=== PATIENT | male | born 1965 | race African-American/Black ===

== ENCOUNTER 2016-06-22 10:08 | Inpatient (IN) ==
--- NOTE | 2016-06-19 22:36 | Discharge Summary ---
<LauriebradySaima L - Last Filed: 06/22/16 13:15> Date of Encounter: 06/22/16 - Discharge Diagnosis (1) Arthritis of hip Priority: Primary Status: Acute (2) Arthritis of left hip Status: Acute (3) Obesity (BMI 35.0-39.9 without comorbidity) Status: Chronic - Discharge Medications Home Medications: Aspirin Enteric Coated [Aspirin EC] 325 mg PO DAILY #21 tablet. 06/22/16 [Rx] Lisinopril/Hydrochlorothiazide [Zestoretic 20-12.5 mg Tablet] 1 each PO DAILY [History] Metoprolol [Lopressor] 25 mg PO DAILY 06/22/16 [History] OxyCODONE Immed Rel [Roxicodone 5 MG] 5 - 10 mg PO Q6HR PRN #40 tablet 06/22/16 [Rx] Allergies/Adverse Reactions: Allergies No Known Allergies Allergy (Verified 06/22/16 12:41) Primary care physician: PCP NO - Patient Status Disposition: Home, Self-Care Condition: Good - Discharge Instructions Follow Up With: NO,PCP [Primary Care Provider] - - Hospital Course Hospital course: Mr. Kee is a 51 year old male - Time Spent with Patient Total time spent providing and/or coordinating discharge services: <Gio Gutierrez - Last Filed: 06/24/16 06:29> Date of Encounter: 06/24/16 Time of Encounter: 06:29 - Discharge Diagnosis (1) Arthritis of left hip Priority: Primary Status: Acute (2) Obesity (BMI 35.0-39.9 without comorbidity) Priority: Secondary Status: Chronic (3) Hypertension Priority: Secondary Status: Chronic Qualifiers: Hypertension type: unspecified secondary hypertension Qualified Code(s): I15.9 - Secondary hypertension, unspecified; I15 - Secondary hypertension Primary care physician: PCP NO - Patient Status Functional capacity at discharge: uses cane/walker Overall status at discharge: patient is progressing back to baseline - Hospital Course Hospital course: Mr. Kee is a 51 year old male The patient had an uneventful postoperative course. They received antibiotics and physical therapy and were discharged in stable condition. There will follow -up in the office in 2 weeks. Aspirin DVT prophylaxis - Time Spent with Patient Total time spent providing and/or coordinating discharge services:
--- NOTE | 2016-06-22 11:50 | History & Physical Report ---
Date of Encounter: 06/22/16 Time of Encounter: 11:49 24 Hour HP Update - Instructions Instructions: If the History and Physical is less than 30 days old and was completed prior to A.M. admission and or procedure and has NOT been updated on calendar day of procedure please complete this update prior to performing procedure. - Update Patient reports changes in Medical Condition: No Changes in assessment/condition: No Changes in Medication: No Preop tests/diagnostics Reviewed: Yes Surgery Remains Indicated: Yes Consent for Planned Operative Procedure(s) Verified: Yes - Pre-Operative Checklist Preoperative Checklist Indicated: No Prophylactic Antibiotic Ordered: Yes Is VTE Prophylaxis Indicated?: Yes
--- NOTE | 2016-06-22 11:55 | Anesthesia Evaluation PreOp ---
Date of Encounter: 06/22/16 Time of Encounter: 11:53 - Past History Planned Operation: L DAVEY Cardiac History: HTN Pulmonary History: Snore PROFESSIONAL SERVICES SPECIALIST History: Denies Any Significant HX Other Medical History: Denies Any Significant HX Anesthesia History: No Prior Anesthetic Complications, Past Anesthesia Alcohol Use: occasionally Drug use: none Medications and Allergies Allergies No Known Allergies Allergy (Unverified 06/02/16 14:33) - Meds/Allergy Pre-op Review Medications Reviewed: Yes Allergies Reviewed: Yes Beta Blockers on Current Med List: Yes If Beta Blockers taken, Date/Time (Last Dose taken): metoprolol at 0700 Anesthesia Results - Labs Laboratory Tests 06/02/16 06/02/16 06/02/16 14:45 14:45 14:45 Hgb 14.7 Hct 44.8 Plt Count 243 PT 15.1 H INR 1.4 APTT 33.1 Sodium 140 Potassium 3.9 Creatinine 0.93 - Imaging EKG: report reviewed (sr) Anesthesia Exam O2 Sat Height 1.8 m Height 1.8 m Weight 127.006 kg Weight 127.006 kg O2 Sat by Pulse Oximetry 94 Vital Signs Temp Pulse Resp BP Pulse Ox 98.5 F 68 18 159/99 94 L 06/22/16 11:27 06/22/16 11:27 06/22/16 11:27 06/22/16 11:27 06/22/16 11:27 Height: 1.8 Weight: 127 NPO (# of Hours): >8 - HEENT Pupil (Motor): Pupils equal, EOMI Mallampati: II Teeth: Normal Oral Opening: Greater than 3 - PROFESSIONAL SERVICES SPECIALIST LOC: Oriented PROFESSIONAL SERVICES SPECIALIST Motor: Normal RUE, Normal LUE, Normal RLE, Normal LLE, Normal Face PROFESSIONAL SERVICES SPECIALIST Sensory: Normal: RUE, LUE, RLE, LLE, Face - Cardiac Rhythm: Regular Murmur: None - Pulmonary Breath Sounds: bilateral Clear Respiratory Effort: Symmetrical Anesthesia Assess/Plan ASA Score: 2 Modified Marquita Scale for Level of Consciousness: Cooperative, oriented, and tranquil Anesthetic Plan: General, Regional Monitoring Plan: Standard Monitors Recovery Plan: PACU
[2016-06-22] MEDS ORDERED: Ringers Solution, Lactated 1,000 ML IVC SCH ×3 (12:00→17:17)
[2016-06-22] MEDS ORDERED: CeFAZolin Pre 3,000 MG/100 ML 3,000 MG/100 ML BAG IVPB ONE (12:50)
[2016-06-22] MEDS ORDERED: *HR* FentaNYL (PF) 100 MCG/2 ML VIAL ONE (13:08)
[2016-06-22] MEDS ORDERED: *HR* Succinylcholine 200 MG/10 ML VIAL IVP ONE (13:08)
[2016-06-22] MEDS ORDERED: Dexamethasone 4 MG/ML VIAL ONE (13:08)
[2016-06-22] MEDS ORDERED: Ondansetron 4 MG/2 ML VIAL ONE ×2 (13:08→18:21)
[2016-06-22] MEDS ORDERED: Lidocaine -MPF 4% 5 ML AMPUL ONE (13:08)
[2016-06-22] MEDS ORDERED: Lidocaine -MPF 2% 2 ML VIAL ONE (13:08)
[2016-06-22] MEDS ORDERED: *HR* Propofol 200 MG/20 ML VIAL IVP ONE (13:09)
[2016-06-22] MEDS ORDERED: *HR* Midazolam HCl 2 MG/2 ML VIAL ONE (13:09)
[2016-06-22] MEDS ORDERED: *HR* Promethazine 25 MG/ML VIAL IVP PRN (13:14)
[2016-06-22] MEDS ORDERED: *HR* HYDROmorphone 2 MG/ML SYRINGE ONE (13:59)
--- NOTE | 2016-06-22 14:35 | Orthopedic Operative Note ---
Date of procedure: 06/22/16 Pre-op diagnosis: Left hip Osteoarthritis Post-op diagnosis: same (Morbid obesity) Procedure: Procedure: Left Total Hip Replacment Estimated blood loss: 500 cc Hardware: Biomet DM Cup: 58 G7 fin cup Femoral size 14 echo full profile lateralized stem Head: +0 head with Kelly Procedural Notes: Grade 43 changes femoral head acetabular socket Operative procedure: The patient was brought to the operating room and placed on the operating room table. After general anesthesia was administered the patient was placed in the lateral decubitus position with the operative leg up. All pressure points were padded appropriately and the head was stabilized in the neutral position. The operative extremity was prepped and draped in the sterile surgical fashion patient received IV antibiotic prior to skin incision. A standard posterior approach is made to the operative hip, the incision was made through the skin and subcutaneous tissue hemostasis was obtained with Bovie cautery. Using careful sharp dissection the fascia was identified and incised exposing the external rotators. The external rotators were released off the greater trochanter and tagged with #2 FiberWire suture. The capsule was T'd open and the hip was brought into internal rotation. Patient noted to have grade 4 arthritic changes femoral head. The femoral neck cut was made at the appropriate level. An anterior capsulotomy was performed for the anterior retractor. Soft tissues removed from the acetabulum. Patient noted to have grade 4 arthritic changes acetabulum. Acetabulum was first reamed medially, and then reamed in 15 degrees of anteversion and 45 degrees off the horizontal. It was reamed up to the appropriate size 58 The appropriate-sized 58 acetabular cup was impacted in place in 15 degrees of anteversion and 45 degrees off the horizontal. This had good fit and fixation. The hip was brought back in to internal rotation and prepared with the telephone coin box collector followed by the canal finder followed by broaching process in 20 degrees anteversion. It was broached up to the appropriate size or team The femoral implant was impacted in place in 20 degrees of anteversion. Trial reduction found the hip to be stable with +0 head and Kelly. The trials were removed and the real implants were impacted in place. The hip was reduced, patient had apparent equal leg lengths. The hip had excellent stability with forward flexion to 90 degrees adduction of 30 degrees and internal rotation of 60 degrees. The hip had no shuck. The hips after 2 minutes with a Betadine saline solution. It was irrigated out with 2 L of pulse irrigation. The external rotators were reattached to drill holes in the greater trochanter. Fascia was closed with a running #2 PDS suture. The deep tissue was irrigated and closed deep with #1 PDS suture superficially with 0 PDS suture and skin was closed with Dermabond and skin nivia. The patient was placed in a sterile dressing and abduction pillow. The patient was extubated and transferred to the recovery room in stable condition. Anesthesia: GETA Surgeon: Gio Gutierrez Condition: stable Disposition: PACU
[2016-06-22] MEDS: *HR* HYDROmorphone (PF) 1 MG/ML SYRINGE IVP PRN ×5 (15:15→16:41)
[2016-06-22] MEDS ORDERED: Acetaminophen IV 1,000 MG/100 ML INFUS..BTL IVPB ONE (15:50)
[2016-06-22] MEDS ORDERED: Ketorolac 30 MG/ML VIAL IVP ONE (15:50)
[2016-06-22] MEDS ORDERED: Gabapentin 300 MG CAPSULE PO STA (15:51)
[2016-06-22] MEDS ORDERED: cloNIDine HCl 0.1 MG TABLET PO ONE (15:51)
[2016-06-22 15:55] LABS: Hematocrit 41.1 % (37.5-50.1); Hemoglobin 13.2 g/dL (12.9-16.9)
[2016-06-22] MEDS ORDERED: cloNIDine HCl 0.1 MG TABLET ONE (16:01)
[2016-06-22] MEDS ORDERED: *HR* HYDROmorphone (PF) 1 MG/ML SYRINGE ONE ×2 (16:07→18:22)
--- NOTE | 2016-06-22 17:01 | Anesthesia Evaluation Post Op ---
Date of Encounter: 06/22/16 Time of Encounter: 16:58 - Vital Signs Vital Signs: Vital Signs/O2 Sat/Glucose, Most Current Temp Pulse Resp BP Pulse Ox 06/22/16 16:45 97.7 F 62 16 136/109 97 06/22/16 16:35 97.7 F 68 16 128/93 97 06/22/16 16:25 69 16 147/101 95 06/22/16 16:15 72 16 139/105 93 L 06/22/16 16:05 97.7 F 67 16 145/96 97 06/22/16 15:55 68 16 155/104 94 L 06/22/16 15:45 75 16 149/108 97 06/22/16 15:35 97.7 F 76 16 157/102 98 06/22/16 15:25 78 16 150/100 98 06/22/16 15:15 73 16 123/95 99 06/22/16 15:05 97.3 F L 82 16 119/76 99 - Lungs Lungs: Clear Ascult./Percussion - Airway Airway: Non-obstructed - Cardiovascular Regular Rate - Mental Status Mental Status: Alert & Oriented, Answers Appropriately - Pain Pain Scale: 4 Pain Scale used: Numeric (1 - 10) - Nausea Vomiting Nausea Vomiting: Fails treatment with oral meds - Hydration Hydration: Ice chips, Has not voided - Discharge PostOp Status: Transfer Patient to floor Anes Supervising Prov Stmt: Pt seen/evaluated, VSS and pt has met criteria for discharge to floor. - MD Yoanna
[2016-06-22] MEDS ORDERED: Acetaminophen 325 MG TABLET PO PRN (17:17)
[2016-06-22] MEDS ORDERED: Temazepam 15 MG CAPSULE PO PRN (17:17)
[2016-06-22] MEDS ORDERED: Naloxone 0.4 MG/ML INJ IVP PRN (17:17)
[2016-06-22] MEDS ORDERED: Ondansetron 4 MG/2 ML VIAL IVP PRN (17:17)
[2016-06-22] MEDS ORDERED: MOM Conc 10 ML UD.LIQ PO PRN (17:17)
[2016-06-22] MEDS ORDERED: Sennosides 8.6 MG TABLET PO PRN (17:17)
[2016-06-22] MEDS ORDERED: *HR* OxyCODONE Immed Rel 5 MG TABLET PO PRN (17:17)
[2016-06-22] MEDS ORDERED: *HR* Enoxaparin 30 MG/0.3 ML SYRINGE SQ SCH (18:00)
[2016-06-22] MEDS: Ascorbic Acid 500 MG TABLET PO SCH (18:33)
[2016-06-22] MEDS: *HR* Enoxaparin 30 MG/0.3 ML SYRINGE SQ SCH (18:39)
[2016-06-22] MEDS: ceFAZolin 3,000 MG in D5% in Water 100 ML IVPB SCH (22:14)
[2016-06-23] MEDS: *HR* HYDROmorphone (PF) 1 MG/ML SYRINGE IVP PRN ×3 (00:21→22:52)
[2016-06-23] MEDS: *HR* OxyCODONE Immed Rel 5 MG TABLET PO PRN ×3 (05:22→18:46)
[2016-06-23] MEDS: ceFAZolin 3,000 MG in D5% in Water 100 ML IVPB SCH (05:22)
[2016-06-23] MEDS: *HR* Enoxaparin 30 MG/0.3 ML SYRINGE SQ SCH ×2 (05:25→18:46)
[2016-06-23 06:00] LABS: Hematocrit 34.8 % (37.5-50.1); Hemoglobin 11.6 g/dL (12.9-16.9)
[2016-06-23 06:50] LABS: BUN/Creatinine Ratio 17 (6-26); Blood Urea Nitrogen 19 mg/dL (8-26); Calcium 8.6 mg/dL (8.6-10.8); Carbon Dioxide 25 mEq/L (19-29); Chloride 101 mEq/L (98-109); Glucose 128 mg/dL (70-99); Osmolality,Calculated 286 (280-300); Potassium 4.3 mEq/L (3.5-4.5); Sodium 136 mEq/L (136-145); eGFR For African Americans > 60 (> 60); eGFR For Non-African Americans > 60 (> 60)
[2016-06-23] MEDS: Ascorbic Acid 500 MG TABLET PO SCH ×2 (07:54→18:46)
[2016-06-23] MEDS: Multivit/Ca/Min/Fe/FA 1 TAB TABLET PO SCH (07:54)
[2016-06-23] MEDS: Lisinopril-HCTZ 20-12.5mg TABLET PO SCH (07:54)
--- NOTE | 2016-06-23 08:07 | Orthopedics Progress Note ---
Date of Encounter: 06/23/16 Time of Encounter: 08:06 - Assessment and Plan (1) Arthritis of left hip Current Visit: Yes Status: Acute (2) Obesity (BMI 35.0-39.9 without comorbidity) Current Visit: Yes Status: Chronic (3) Hypertension Current Visit: Yes Status: Chronic Qualifiers: Hypertension type: unspecified secondary hypertension Qualified Code(s): I15.9 - Secondary hypertension, unspecified; I15 - Secondary hypertension Subjective Interval history: Patient was seen this morning doing well without complaints. Afebrile vital signs stable. Operative extremity: Neurovascularly intact Dressing clean dry and intact Calves nontender Assessment and plan: Continue with postoperative care Hematocrit 34 Objective Vital signs: Vital Signs Temp Pulse Resp BP Pulse Ox 06/23/16 07:19 98.2 F 102 18 138/82 94 L 06/23/16 06:40 93 L 06/23/16 00:44 98.1 F 93 17 121/68 93 L 06/22/16 18:53 97.8 F 75 18 131/77 96 06/22/16 17:30 97.7 F 74 18 174/80 96 06/22/16 16:45 97.7 F 62 16 136/109 97 06/22/16 16:35 97.7 F 68 16 128/93 97 06/22/16 16:25 69 16 147/101 95 06/22/16 16:15 72 16 139/105 93 L 06/22/16 16:05 97.7 F 67 16 145/96 97 06/22/16 15:55 68 16 155/104 94 L 06/22/16 15:45 75 16 149/108 97 06/22/16 15:35 97.7 F 76 16 157/102 98 06/22/16 15:25 78 16 150/100 98 06/22/16 15:15 73 16 123/95 99 06/22/16 15:05 97.3 F L 82 16 119/76 99 06/22/16 12:07 98.5 F 68 18 159/99 94 L 06/22/16 11:27 98.5 F 68 18 159/99 94 L Intake and Output 06/22/16 06/23/16 06/23/16 23:59 07:59 15:59 Intake Total 100 / 100 Output Total 1000 / 1000 Balance -900 / -900 Intake: IV Fluids 100 / 100 Ancef 3,000 MG In 100 / 100 Dextrose 5% 100 ML @ 200 mls/hr IVPB Q8H [facility] Rx#: [id number] Output: Urine 200 / 200 Emesis 800 / 800 - Labs CBC & BMP: 06/23/16 04:16 06/23/16 04:16 Labs: Abnormal lab results Hgb 11.6 g/dL (12.9-16.9) L D 06/23/16 04:16 Hct 34.8 % (37.5-50.1) L 06/23/16 04:16 Glucose 128 mg/dL (70-99) H 06/23/16 04:16 - VTE Documentation of Mechanical Device: Venous foot pump, device Consult Discharge Plan - Plan Referrals: NO,PCP [Primary Care Provider] -
[2016-06-24] MEDS: *HR* OxyCODONE Immed Rel 5 MG TABLET PO PRN ×2 (01:08→09:48)
[2016-06-24] MEDS: *HR* HYDROmorphone (PF) 1 MG/ML SYRINGE IVP PRN (04:35)
[2016-06-24 05:06] LABS: Hemoglobin 10.1 g/dL (12.9-16.9)
[2016-06-24 05:21] LABS: BUN/Creatinine Ratio 15 (6-26); Blood Urea Nitrogen 14 mg/dL (8-26); Calcium 8.6 mg/dL (8.6-10.8); Carbon Dioxide 26 mEq/L (19-29); Chloride 99 mEq/L (98-109); Glucose 112 mg/dL (70-99); Osmolality,Calculated 277 (280-300); Potassium 3.6 mEq/L (3.5-4.5); Sodium 133 mEq/L (136-145); eGFR For African Americans > 60 (> 60); eGFR For Non-African Americans > 60 (> 60)
[2016-06-24] MEDS: *HR* Enoxaparin 30 MG/0.3 ML SYRINGE SQ SCH (06:16)
[2016-06-24 06:58] VITALS: BP 115/73
[2016-06-24] MEDS: Lisinopril-HCTZ 20-12.5mg TABLET PO SCH (10:42)
[2016-06-24] MEDS: Multivit/Ca/Min/Fe/FA 1 TAB TABLET PO SCH (10:42)
[2016-06-24] MEDS: Ascorbic Acid 500 MG TABLET PO SCH (10:42)
== END 2016-06-24 11:37 | disposition home or self-care (01) | DRG 470 ==
LOC: SAMDAY 10:08 → 3NENU 18:18
PROVIDERS: ADMIT Orthopaedic Surgery; ATTEND Orthopaedic Surgery